=== PATIENT | female | born 1950 | race Caucasian/White ===

== ENCOUNTER 2016-08-19 11:12 | Observation (INO) | payer BC, OTHER ==
[~2016-08-19] VITALS: Ht 167.6 cm; Wt 81.6 kg
[2016-08-19] VITALS (8 sets, daily range): BP systolic 118–163; BP diastolic 70–96; PULSE 63–85; TEMP 36.4–37.4; O2SAT 96–98; Ht 167.6 cm; Wt 81.6 kg
--- NOTE | 2016-08-19 11:18 | History & Physical Bridge Note ---
H&P Re-Evaluation Bridge Note: I have examined the patient, reviewed the History & Physical and in the interval since the performance of the History & Physical I have noted the following changes of clinical significance: No changes noted
--- NOTE | 2016-08-19 11:19 | Procedure Note ---
Pre-Mod Sedation Assessment General Date of Moderate Sedation: Aug 19, 2016. Review Cardiovascular: regular rate, rhythm Abdomen: soft Lungs: lungs clear Airway Class: II Pre-Sedation Airway Assessment Oral Cavity: WNL Able to Visualize Vocal Cords: No Short Thick Neck: No Hx of Sleep Apnea: No Smoking Status: Former Smoker Mallampati Classification: Class II ASA Classification: Class II Procedure Planning Contraindications-for Mod Sed: None Yes Notes The planned sedation has been discussed with the patient and consent obtained. I have identified the patient, determined the appropriateness of sedation and have assessed the patient immediately prior to the procedure. All medicine(s) and interventions are by my order.
[2016-08-19] MEDS ORDERED: ESCI10TA17 PO (11:50)
[2016-08-19] MEDS ORDERED: LORA-741 PO (11:50)
[2016-08-19] MEDS ORDERED: CLR10 PO (11:50)
[2016-08-19] MEDS ORDERED: FLUT0.15 (11:50)
[2016-08-19] MEDS ORDERED: PRLSR20 PO (11:50)
[2016-08-19] MEDS ORDERED: RANI300T2 PO (11:50)
[2016-08-19] MEDS ORDERED: WARF5TAB7 PO (11:50)
[2016-08-19] MEDS ORDERED: MIDAZOLAM HCL 5 MG/ML 1 ML VIAL ONE ×3 (12:02→14:55)
[2016-08-19] MEDS ORDERED: FENTANYL CITRATE INJ 50 MCG/1 ML 2 ML VIAL ONE ×4 (12:02→14:55)
[2016-08-19] MEDS ORDERED: HEPARIN SOD (PORCINE) 1000 UNIT/ML 10 ML VIAL ONE (12:49)
--- NOTE | 2016-08-19 15:36 | Procedure Note ---
Post-Mod Sedation Assessment General Date of Moderate Sedation Aug 19, 2016. Vital Signs: Vital Signs Past 12 Hours Date Time Temp Pulse Resp B/P Pulse Ox O2 Delivery O2 Flow Rate FiO2 08/19/16 11:39 36.7 76 16 163/77 96 Room Air Review - Discharge Criteria Vital Signs Stable: Yes Alert/Oriented/Conversant: Yes Returned to Baseline Mental St: Yes Nausea Absent/Minimal: Yes Pain/Discomfort/Absent/Minimal: Yes Normal/Baseline Respirations: Yes Active Bleeding?: No Pt Received D/C Instructions: N/A Prescriptions Given: None Specific Proced. D/C Criteria Distal Pulses Present (Cardiac: Yes Groin site assessed-Card Cath: Yes Voided Prior To Discharge: Yes Discharged Patients Adult Escort/Transportation: N/A
--- NOTE | 2016-08-19 15:39 | [facility] Post Operative Brief Note ---
Immediate Operative Summary Operative Date Aug 19, 2016. Pre-Operative Diagnosis Paroxysmal atrial flutter Post-Operative Diagnosis same, bidirectional block along the Cavotricuspid isthmus Procedure(s) Performed eps, 3d mapping of his bundle/c/s os and ra-ivc junction and CTI, radiofrequency ablation of CTI Surgeon alexander valdez Surface Boss Surgeon(s) none Estimated Blood Loss <5cc Findings see official report Fluids (cc crystalloids) 2.6L Specimens none Drains none Anesthesia 11mg versed and 350mcg fentanyl Complication(s) None Disposition PCU
[2016-08-19] MEDS ORDERED: ACETAMINOPHEN 325 MG TAB PO PRN (15:45)
[2016-08-19] MEDS ORDERED: LORAZEPAM 0.5 MG TAB PO PRN (15:45)
--- NOTE | 2016-08-19 15:55 | Discharge Instructions ---
Discharge Instructions Date of Service Aug 19, 2016. Admission Reason for Admission: Atrial Flutter I48.3 Discharge Discharge Diagnosis / Problem: atrial flutter Discharge Goals Goal(s): Improve function Activity Recommendations Activity Limitations: as noted below Lifting Limitations: no more than 10 pounds (no lifting or squating more than 10 pounds for next week) Exercise/Sports Limitations: as tolerated May Resume Sexual Activity: after one week Shower/Bathe: tomorrow Driving or Machine Use: resume 1 day after discharge . Current Hospital Diet Patient's current hospital diet: Regular Diet Discharge Diet Recommended Diet: Regular Diet Procedures Procedures Performed: eps, 3d mapping of his bundle/c/s os and ra-ivc junction and CTI, radiofrequency ablation of CTI Pending Studies Studies pending at discharge: no Medical Emergencies . Who to Call and When: Medical Emergencies: If at any time you feel your situation is an emergency, please call 911 immediately. . Non-Emergent Contact Non-Emergency issues call your: Duplicating Machine Operator . . "Provider Documentation" section prepared by Francesca Wilks. VTE Core Measure Inpt VTE Proph given/why not?: Warfarin (Coumadin)
--- NOTE | 2016-08-19 15:59 | Discharge Summary ---
Discharge Summary Date of Service Aug 19, 2016. Discharge Summary Admission Date: 08/19/2016 Discharge Date: Aug 20, 2016 Discharge Disposition: Home Principal Diagnosis: atrial flutter Secondary Diagnoses/Problems: GERD Allergic Rhinitis Anxiety/depression family history of CAD Procedures: EPS, 3d mapping of: His bundle, c/s os, CTI and RA-IVC junction; radiofrequency ablation of the cavotricuspid isthmus Medication Reconciliation Continued Medications: Escitalopram (Lexapro) 10 Mg Tab 10 MG PO DAILY, TAB Fluticasone Propionate (Nasal) (Flonase Allergy Relief) 50 Mcg/Act Spr Loratadine (Claritin) 10 Mg Tab 10 MG PO DAILY, TAB Lorazepam (Ativan) 0.5 Mg Tab 0.5 MG PO TID PRN for Anxiety, TAB Omeprazole (Prilosec) 20 Mg Capcr 20 MG PO DAILY, CAP Ranitidine (Zantac) 300 Mg Tab 300 MG PO HS, TAB Warfarin Sod (Jantoven) 5 Mg Tab 5 MG PO DAILY, TAB Admission Information Physical Exam (per Admitting): aaox3, nad nc/at, eomi supple, no jvd nrl s1/s2, no murmur cta b/l no w/r/r soft nt/nd no edema b/l no focal deficits Hospital Course Pt was admitted for elective EPS and atrial flutter ablation. She underwent procedure without any complications. Monitored overnight and discharged home in stable condition following morning. Total time spent on discharge = This includes examination of the patient, discharge planning, medication reconciliation, and communication with other providers. Discharge Instructions ACTIVITY RECOMMENDATIONS: It is common to feel weak and fatigue for a few days. * Do not drive or operate any motorized equipment for the next three days. * Limit stair usage (2 or 3 trips a day only) for the next three days. * Do not lift anything heavier than 10 pounds for the next three days. * Do not engage in vigorous exercise or any sports for the next five days. * You may shower the day after your procedure, but do not immerse the area for three days. Cleanse the site gently with soap and water. SPECIAL CARE INSTRUCTIONS: * You may replace the pressure dressing or band-aid the morning after the procedure. * After your procedure, it is normal to have a small bruise or small lump at the site. Examine your site daily for any change in the bruise or lump, redness, swelling, drainage or numbness. Notify your doctor if any change. BLEEDING: * If there is a small amount of bleeding at the site, lie down and apply firm pressure with a clean cloth for ten minutes. When the bleeding stops, lie quietly keeping the procedure limb straight for six hours. Notify your doctor as soon as possible. * If the bleeding does not stop after ten minutes or if there is a large amount of bleeding or spurting, call 911 immediately. Continue to lie down and hold firm pressure until help arrives. SKIN IRRITATION: * You may experience some redness and/or swelling in the area where radiation was administered. If any skin irritation occurs, please contact your family physician. FOLLOW UP VISIT: Keep any scheduled doctor appointments.
[2016-08-19] MEDS ORDERED: IV FLUIDS COMPLETED PRN (16:30)
[2016-08-19 16:50] LABS: HEMATOCRIT 44.4 % (37-47); MEAN CELL VOLUME 87.2 fL (80-100); MEAN CORPUSCULAR HEMOGLOBIN 29.7 pg (25-34); MEAN PLATELET VOLUME 9.8 fL (7.4-10.4); PLATELET COUNT 212 K/uL (130-400); RED BLOOD COUNT 5.09 M/uL (4.2-5.4); WHITE BLOOD COUNT 8.36 K/uL (4.8-10.8)
[2016-08-19 16:58] LABS: INR 2.2 (0.9-1.1); PROTHROMBIN TIME (PATIENT) 24.2 SECONDS (9.0-12.0)
[2016-08-19] MEDS ORDERED: WARFARIN SOD 5 MG TAB PO SCH (18:00)
--- NOTE | 2016-08-19 19:46 | OPERATIVE REPORT ---
DATE OF OPERATION: 08/19/2016 PREOPERATIVE DIAGNOSIS: Paroxysmal typical atrial flutter. POSTOPERATIVE DIAGNOSIS: Same along with bidirectional block through the cavotricuspid isthmus. SURGEON: Francesca Wilks DO. SANDWICH MACHINE OPERATOR: None. PROCEDURE: Electrophysiology study, 3D mapping of the His bundle region, coronary sinus os, the IVC-RA junction and the cavotricuspid isthmus of the right atrium, followed by a radiofrequency ablation of the cavotricuspid isthmus. COMPLICATIONS: None. CONDITION: Stable. URINE OUTPUT: Not applicable. ANESTHESIA: Monitored conscious sedation, a total of 11 mg of Versed, 350 mcg of fentanyl. START TIME: 1220. END TIME: 1535. INTRAVENOUS FLUIDS: 2.6 liters. BLOOD LOSS: Less than 5 mL FINDINGS: See below. DRAINS: None. URINE OUTPUT: Not applicable. INDICATIONS: This is a 65-year-old female who has a past medical history of gastroesophageal reflux disease, anxiety/depression, allergic rhinitis and a family history of coronary artery disease. She was due to have an EGD when she was found to be in atrial flutter typical with RVR. She actually underwent a SERGEY and cardioversion last month for this and had been doing fairly well. She was seen in my office due to the atrial flutter and we discussed her options and she wanted to move ahead with the procedure for an ablation for the flutter. CONSENT: Consent was obtained prior to the patient going into the electrophysiology lab. The patient was explained of risks, benefits, alternatives to the procedure. Risks include but not limited to sudden cardiac , cardiac arrhythmias, cerebrovascular accident, myocardial infarction, injury to the blood vessels, chambers of the heart or the [place] electrical system where she would need a permanent pacemaker, bleeding and infection. The patient understood these risks and agreed to the procedure as planned. Informed consent was obtained. DESCRIPTION OF THE PROCEDURE: The patient was brought into the electrophysiology lab in a fasting state. She was connected to continuous cardiac monitoring. A timeout was performed to ensure the patient's identity and procedure correctly. The patient was prepped and draped in normal surgical standard fashion over bilateral groins. Moderate conscious sedation was given throughout the procedure for the patient's comfort level. [place] precautions were maintained throughout the procedure. 10 mL of 1% lidocaine were given in bilateral groins for local anesthesia. Using the modified Seldinger technique, venous access was obtained in the following manner: 1. The left femoral vein had 7-[place] sheath, followed by a 20 pole Halo catheter that was positioned around the right atrium. 2. A 7-[place] sheath, followed by a DF Biosense curve coronary sinus Decapolar catheter that was positioned down the coronary sinus. 3. The right femoral vein initially had a 6-[place] sheath which was then swapped out for an SRO at some juncture in the procedure, which then had a Biosense SmartTouch DF curve 4 mm ThermoCool ablation catheter. Electrophysiology study was done with the following findings: 1. NH interval 148, QRS 90 milliseconds, QT 368 milliseconds. 2. Sinus cycle length 876 milliseconds, AH interval 74 milliseconds, HV 56 milliseconds. 3. AV Wenckebach was found to be 390 milliseconds. The AV node ERP was found to be 600/320 and 500/340. The atrial ERP was found to be 600/250 and 500/240. 4. Measuring the timing across the cavotricuspid isthmus, pacing CS prox, measuring the Halo distal which was lateral to the CTI in the right atrium, the distance took 76 milliseconds. Measuring from pacing Halo distal, again lateral to the CTI on the right atrium, medial to the CTI from the CS prox was 68 milliseconds. 5. I did try to induce atrial flutter with burst pacing from high right atrium on halo down to 200 as well as giving singles and doubles, but I did not induce any atrial flutter, but due to the fact that she did have typical atrial flutter on 12-lead EKG, we set up to do an empiric cavotricuspid isthmus line. 6. The ablation catheter was flushed and advanced into the heart. We did 3D mapping of the His bundle cloud in addition to coronary sinus os, dragging it around over the cavotricuspid isthmus down to the RA-IVC junction. After 3D mapping was completed, we then placed the catheter back on the cavotricuspid isthmus, near the tricuspid valve. Of note, there were ridges along the tricuspid valve on the line as well as on IVC junction. In addition, there was a big pocket within the middle part of the cavotricuspid isthmus. We gave a series of melgar at 35 key for 1 minute duration. I then had to go lateral and medial to my line due to the pocket and ridges until I finally was able to obtain bidirectional block. The ablation catheter was then positioned over the His bundle region to record an AH and HV and then it was advanced into the right ventricle, and during our post-ablation waiting period, an electrophysiology study was done with the following findings: 1. NH interval 168 milliseconds, QRS 80 milliseconds, QT 310 milliseconds. Sinus cycle length 598 milliseconds, AH 86 milliseconds, HV 54 milliseconds. 2. AV Wenckebach 390 milliseconds. 3. AV node ERP was 600/380 and 500/370. Atrial ERP was 600/200 and 500/200. Right ventricular ERP was 600/250 and 400/240. 4. With pacing medial to the cavotricuspid isthmus line from the CS prox measuring to lateral distal, there was 142 milliseconds. When I did a vice versa pacing lateral to the cavotricuspid line from the Halo distal measuring it to the CS prox which was medial to the line, there was 140 milliseconds, indicating bidirectional block. 5. After an appropriate waiting period, there still remained to be bidirectional block. All the catheters were then removed from the heart and the sheaths were pulled and manual compression was used to establish hemostasis. IMPRESSION: 1. Bidirectional block after successful radiofrequency ablation of cavotricuspid isthmus. 2. Normal atrioventricular jan function. PLAN: Monitor the patient overnight, 12-lead ECG. Do a stat PT and INR and continue her Coumadin. She is not to do any heavy lifting or squatting for 1 week. She should follow up in my [place] office in 1 month. I attest to the content of the Intraoperative Record and any orders documented therein. Any exceptions are noted below. SHARDAD
[2016-08-19] MEDS ORDERED: RANITIDINE HCL 150 MG TAB PO SCH (21:00)
[2016-08-19] MEDS: FLUTICASONE PROPIONATE NA SPR 16 GM BTL SCH (21:16)
[2016-08-20 03:29] VITALS: BP 105/62; PULSE 65; TEMP 36.5; O2SAT 94
[2016-08-20 06:15] LABS: INR 1.8 (0.9-1.1); PROTHROMBIN TIME (PATIENT) 20.1 SECONDS (9.0-12.0)
[2016-08-20 07:47] VITALS: BP 122/81; PULSE 68; TEMP 36.7; O2SAT 96
[2016-08-20] MEDS: FLUTICASONE PROPIONATE NA SPR 16 GM BTL SCH (07:55)
--- NOTE | 2016-08-20 08:28 | Cardiology Follow-Up ---
Subjective Subjective Date of Service: Aug 20, 2016. Pt evaluation today including: conversation w/ patient, physical exam, chart review, lab review Pain: none Voiding: no voiding problems Additional Details: feels great Review of Systems Constitutional: No fatigue, No weakness Respiratory: No dyspnea at rest, No shortness of breath Cardiac: No chest pain, No edema, No palpitations Abdomen: No diarrhea, No vomiting Endo: No fatigue Objective Vital Signs Last Vital Signs Documentation Date Time Temp Pulse Resp B/P Pulse Ox O2 Delivery O2 Flow Rate FiO2 08/20/16 08:00 Room Air 08/20/16 07:47 36.7 68 18 122/81 96 Physical Exam: General Appearance: WD/WN, no apparent distress Eyes: bilateral eyes EOMI, bilateral eyes PERRL Neck: supple, no JVD Respiratory/Chest: lungs clear, normal breath sounds Cardiovascular: regular rate, rhythm, no edema, no JVD, no murmur Abdomen: soft (b/l groins soft, no hematoma) Neurologic/Psychiatric: alert, oriented x 3 Skin: normal color, warm/dry, no rash Assessment and Plan Impression: 1. paroxysmal atrial flutter, newly diagnosed 07/2016 s/p SERGEY and DCCV in 07/2016 and now s/p CTI ablation 08/19/2016 2. GERD 3. Anxiety 4. Allergic rhinitis Plan: -Ok for discharge home today -Continue coumadin for 1 month -f/u with me in [place] in 1 month -no heavy lifting or squatting for 1 week Discharge planning: home Medications: Medications Administered Medications (Trade) Dose Ordered Sig/Tito Route Start Time Stop Time Status Last Admin Dose Admin Fentanyl Citrate (Fentanyl Inj) 100 mcg STK-MED ONCE .ROUTE 08/19/16 12:02 08/19/16 12:05 DC 08/19/16 12:02 100 MCG Midazolam HCl (Versed Inj) 5 mg STK-MED ONCE .ROUTE 08/19/16 12:02 08/19/16 12:05 DC 08/19/16 12:02 5 MG Fentanyl Citrate (Fentanyl Inj) 100 mcg STK-MED ONCE .ROUTE 08/19/16 12:49 08/19/16 12:52 DC 08/19/16 12:49 100 MCG Midazolam HCl (Versed Inj) 5 mg STK-MED ONCE .ROUTE 08/19/16 12:49 08/19/16 12:52 DC 08/19/16 12:49 5 MG Fentanyl Citrate (Fentanyl Inj) 100 mcg STK-MED ONCE .ROUTE 08/19/16 13:51 08/19/16 13:54 DC 08/19/16 13:51 100 MCG Fentanyl Citrate (Fentanyl Inj) 100 mcg STK-MED ONCE .ROUTE 08/19/16 14:55 08/19/16 14:58 DC 08/19/16 14:55 50 MCG Midazolam HCl (Versed Inj) 5 mg STK-MED ONCE .ROUTE 08/19/16 14:55 08/19/16 14:58 DC 08/19/16 14:55 1 MG Fluticasone Propionate (Flonase Nasal [place]) 1 sprays BID NA 08/19/16 21:00 09/18/16 20:59 08/20/16 07:55 1 SPRAYS Warfarin Sodium (Coumadin Tab) 5 mg DAILY@1600 PO 08/19/16 18:00 09/18/16 17:59 08/19/16 18:16 5 MG Pantoprazole Sodium (Protonix Tab) 40 mg DAILY PO 08/20/16 09:00 09/19/16 08:59 08/20/16 07:54 40 MG Ranitidine HCl (zANTac TAB) 300 mg HS PO 08/19/16 21:00 09/18/16 20:59 08/19/16 21:16 300 MG Lab Results: Last 24 Hours Test 08/19/16 16:44 08/20/16 05:45 White Blood Count 8.36 K/uL Red Blood Count 5.09 M/uL Hemoglobin 15.1 g/dL Hematocrit 44.4 % Mean Corpuscular Volume 87.2 fL Mean Corpuscular Hemoglobin 29.7 pg Mean Corpuscular Hemoglobin Concent 34.0 g/dl RDW Standard Deviation 41.8 fL RDW Coefficient of Variation 13.1 % Platelet Count 212 K/uL Mean Platelet Volume 9.8 fL Prothrombin Time 24.2 SECONDS 20.1 SECONDS Prothromb Time International Ratio 2.2 1.8 ECG: SR possible anterior ND
[2016-08-20 08:30] VITALS: BP 122/81; PULSE 68; TEMP 36.7; O2SAT 96
[2016-08-20] MEDS ORDERED: ESCITALOPRAM OXALATE 10 MG TAB PO SCH (09:00)
[2016-08-20] MEDS ORDERED: PANTOprazole SOD 40 MG TAB PO SCH (09:00)
[2016-08-20] MEDS ORDERED: LORATADINE 10 MG TAB PO SCH (09:00)
== END 2016-08-20 09:39 | disposition home or self-care (01) ==
LOC: C.EP 11:12 → C.2T 15:41
PROVIDERS: ADMIT Internal Medicine; ATTEND Internal Medicine
DX: I48.92 Unspecified atrial flutter (principal); K21.9 Gastro-esophageal reflux disease without esophagitis; F41.9 Anxiety disorder, unspecified; F32.9 Major depressive disorder, single episode, unspecified; Z82.49 Family history of ischemic heart disease and other diseases of the circulatory system; Z79.01 Long term (current) use of anticoagulants